=== PATIENT | male | born 1985 | race Two or more races ===

== ENCOUNTER 2019-02-10 13:58 | Emergency (ER) | payer SELFPAY ==
--- NOTE | 2019-02-10 14:15 | UC ---
Dental HPI - HPI Summary HPI Summary: R upper and lower jaw pain, tenderness as well as gum/tooth involvement intermittent for approx 3 wks. He had tooth removed R lower, was rx'd pcn and he finished. Shortly after finishing antibx, R cheek and R upper and lower gums became inflammed and painful, pain w/ opening mouth all on R side. denies fever, bowden, neck pain. He is a farm specialist, up to date w/ tetanus - History of Current Complaint Chief Complaint: UCDentalProblem Stated Complaint: RIGHT SIDE DENTAL PAIN Time Seen by Provider: 02/10/19 14:01 Hx Obtained From: Patient - PROVIDER SPEAKS ENGLISH Severity: Moderate Aggravating Factor(s): Chewing Alleviating Factor(s): Nothing Related History: Previous Dental Care on Same Tooth - [facility] approx 3 wks ago - Allergies/Home Medications Allergies/Adverse Reactions: Allergies Allergy/AdvReac Type Severity Reaction Status Date / Time No Known Allergies Allergy Verified 02/10/19 14:11 PMH/Surg Hx/FS Hx/Imm Hx - Additional Past Medical History Additional PMH: no chronic illness Previously Healthy: Yes - Surgical History Surgical History: None - Family History Known Family History: Positive: Non-Contributory - Social History Alcohol Use: None Substance Use Type: None Smoking Status (MU): Former Smoker - Immunization History Most Recent Tetanus Shot: 2 yrs ago Review of Systems All Other Systems Reviewed And Are Negative: Yes Constitutional: Negative: Fever, Chills, Fatigue Skin: Negative: Rash ENT: Positive: Dental Pain, Ear Ache - r ear, Sinus Pain/Tenderness - r cheek. Negative: Sore Throat Respiratory: Positive: Negative Cardiovascular: Positive: Negative Musculoskeletal: Negative: Edema Neurological: Negative: Headache Physical Exam Triage Information Reviewed: Yes Appearance: Well-Appearing Vital Signs Reviewed: Yes Eyes: Positive: Conjunctiva Clear ENT: Positive: Pharynx normal, TMs normal, Trismus - MILD, Uvula midline, Other - RIGHT CHEEK TENDERNESS Dental: Positive: Abscess @ - R LOWER GUMS, Other: - POOR DENTITION Neck: Positive: Supple, Nontender, No Lymphadenopathy Respiratory Exam: Normal Cardiovascular Exam: Normal Neurological: Positive: Alert Dental Complaint Course/Dx - Course Course Of Treatment: R lower dental abscess s/p tooth removal approx 3 wks. Completed PCN at that time and pain/swelling returned after completion. There is swelling, tenderness on exam w/ mild trismus. up to date w/ tetanus. No nucha rigidity. Afebrile, vitals good. Plan is to give a short burst of steroids, ibu 600mg for pain and a course of Augmentin. He made appt during visit w/ [facility] in 2 days. I've advised him importance of returning to care or going to ED if bowden, fever, or worsening trismus develops. - Differential Dx/Diagnosis Differential Diagnosis/Dx: Dental Abscess, Dental Caries, Mandibular Trauma, Post Extraction Pain Provider Diagnosis: Dental abscess Discharge - Sign-Out/Discharge Documenting (check all that apply): Patient Departure All imaging exams completed and their final reports reviewed: No Studies - Discharge Plan Condition: Good Disposition: HOME Prescriptions: Amoxicillin/Clavulanate TAB* [Augmentin TAB 875*] 875 mg PO BID 10 Days #20 tab Ibuprofen [Ibu] 600 mg PO TID 10 Days #30 tablet predniSONE [Prednisone 20 MG TAB] 20 mg PO DAILY 5 Days #5 tablet Patient Education Materials: Dental Abscess (ED) Referrals: No Primary Care Phys,NOPCP [Primary Care Provider] - Additional Instructions: POR FAVOR REGRESA A LA DENTISTA PARA EVALUACION. - Billing Disposition and Condition Condition: GOOD Disposition: Home
[2019-02-10 14:18] VITALS: BP 146/86
== END 2019-02-10 14:49 | disposition home or self-care (01) ==
LOC: UCCORT 13:58
DX: K04.7 Periapical abscess without sinus (principal); Z87.891 Personal history of nicotine dependence
CPT/HCPCS: 99212; G0463